=== PATIENT | female | born 1940 | race Two or more races ===

== ENCOUNTER 2017-12-12 09:48 | Outpatient (CLI) | payer OTHER | END 2017-12-12 10:15 | disposition home or self-care (01) | LOC: RAD 501 09:48 | DX: M25.551 Pain in right hip (principal) ==

== ENCOUNTER → 2017-12-31 09:55 | Outpatient (CLI) | payer OTHER | END | disposition home or self-care (01) | LOC: LAB 09:55 | DX: E55.9 Vitamin D deficiency, unspecified (principal); M85.9 Disorder of bone density and structure, unspecified; E88.89 Other specified metabolic disorders; M81.8 Other osteoporosis without current pathological fracture; E83.42 Hypomagnesemia; E56.1 Deficiency of vitamin K; M05.541 Rheumatoid polyneuropathy with rheumatoid arthritis of right hand; M25.542 Pain in joints of left hand; E21.2 Other hyperparathyroidism ==

== ENCOUNTER 2018-04-05 09:59 | Outpatient (CLI) | payer OTHER | END 2018-04-05 10:00 | disposition home or self-care (01) | LOC: RAD 09:59 | DX: D64.89 Other specified anemias (principal); D68.8 Other specified coagulation defects; N39.0 Urinary tract infection, site not specified; R82.8 Abnormal findings on cytological and histological examination of urine; E03.8 Other specified hypothyroidism; E11.9 Type 2 diabetes mellitus without complications; E55.9 Vitamin D deficiency, unspecified; I49.8 Other specified cardiac arrhythmias; Z76.89 Persons encountering health services in other specified circumstances ==

== ENCOUNTER 2018-04-15 10:47 | Outpatient (CLI) | payer OTHER ==
[2018-04-22] MEDS ORDERED: CALCIUM600 MG PO (12:39)
[2018-04-22] MEDS ORDERED: FOLIC ACID1 MG PO (12:39)
[2018-04-22] MEDS ORDERED: ASPIR-TRIN325 MG PO (12:39)
[2018-04-22] MEDS ORDERED: ALENDRONATE SOD70 MG PO (12:40)
[2018-04-22] MEDS ORDERED: ATENOLOL25 MG PO (12:41)
[2018-04-22] MEDS ORDERED: METHOTREXATE PO (12:41)
[2018-04-22] MEDS ORDERED: PAROXETINE7.5 MG PO (12:41)
[2018-04-22] MEDS ORDERED: ATORVASTATIN CA40 MG PO (12:42)
== END 2018-04-15 10:48 | disposition home or self-care (01) ==
LOC: LAB 10:47
DX: A49.02 Methicillin resistant Staphylococcus aureus infection, unspecified site (principal)

== ENCOUNTER 2018-04-29 04:55 | Day surgery (SDC) | payer OTHER ==
[~2018-04-29] VITALS: Ht 160 cm; Wt 56.7 kg
[~2018-04-29 04:55] MED LIST: ALENDRONATE SOD70 MG PO; ASPIR-TRIN325 MG PO; ATENOLOL25 MG PO; ATORVASTATIN CA40 MG PO; CALCIUM600 MG PO; FOLIC ACID1 MG PO; METHOTREXATE PO; PAROXETINE7.5 MG PO
== END 2018-04-30 13:00 | disposition home or self-care (01) ==
LOC: CIR.AMB 04:55 → O/R 16:14 → CIR.AMB 16:14 → SURG 16:14 → CIR.AMB 17:10 → SURG 17:36 → O/R 17:36 → CIR.AMB 04-30 13:00 → SURG 04-30 20:48 → O/R 04-30 20:48
DX: T84.018A Broken internal joint prosthesis, other site, initial encounter (principal); S63.06 Subluxation and dislocation of metacarpal (bone), proximal end; M65.842 Other synovitis and tenosynovitis, left hand; Z96.632 Presence of left artificial wrist joint
CPT/HCPCS: 26531 ×4; 26541 ×4; C1776

== ENCOUNTER 2019-09-16 10:33 | Outpatient (CLI) | payer OTHER | END 2019-09-16 10:40 | disposition home or self-care (01) | LOC: LAB 10:33 | DX: D64.89 Other specified anemias (principal); E88.89 Other specified metabolic disorders; D68.8 Other specified coagulation defects; N39.0 Urinary tract infection, site not specified; Z22.322 Carrier or suspected carrier of Methicillin resistant Staphylococcus aureus; E13.69 Other specified diabetes mellitus with other specified complication; E55.9 Vitamin D deficiency, unspecified; Z76.89 Persons encountering health services in other specified circumstances; I49.8 Other specified cardiac arrhythmias; E03.8 Other specified hypothyroidism; M25.50 Pain in unspecified joint ==

== ENCOUNTER → 2019-09-17 18:02 | Outpatient (CLI) | payer OTHER | END | disposition home or self-care (01) | LOC: RAD 18:02 → LAB 18:02 | DX: M25.551 Pain in right hip (principal); M25.552 Pain in left hip ==

== ENCOUNTER 2019-09-24 09:45 | Inpatient (IN) | payer OTHER ==
[~2019-09-24] VITALS: Ht 160 cm; Wt 54.4 kg
[2019-10-01] MEDS ORDERED: METHOTREXATE2.5 MG PO (07:46)
[2019-10-01] MEDS ORDERED: PAROXETINE HCL10 MG PO (07:47)
== END 2019-10-03 16:07 | disposition home or self-care (01) | DRG 470 ==
LOC: SURG 09:45 → SURH 09-30 08:46 → O/R 09-30 08:46 → SURG 09-30 09:45 → SURH 09-30 16:36
PROVIDERS: ADMIT Orthopaedic Surgery
PROC: 0SRB0JZ Replacement of Left Hip Joint with Synthetic Substitute, Open Approach (ICD-10-PCS; principal; 2019-09-30 07:00)
DX: M16.12 Unilateral primary osteoarthritis, left hip (principal); D62 Acute posthemorrhagic anemia; M06.9 Rheumatoid arthritis, unspecified

== ENCOUNTER 2020-01-01 09:26 | Outpatient (CLI) | payer OTHER ==
[~2020-01-01 09:26] MED LIST changes: +METHOTREXATE2.5 MG PO; +PAROXETINE HCL10 MG PO
== END 2020-01-01 09:49 | disposition home or self-care (01) ==
LOC: LAB 09:26
DX: D64.89 Other specified anemias (principal); E88.89 Other specified metabolic disorders; D68.8 Other specified coagulation defects; N39.0 Urinary tract infection, site not specified; Z22.322 Carrier or suspected carrier of Methicillin resistant Staphylococcus aureus; M79.651 Pain in right thigh; M79.652 Pain in left thigh; M79.604 Pain in right leg; M79.605 Pain in left leg; M17.0 Bilateral primary osteoarthritis of knee; Z76.89 Persons encountering health services in other specified circumstances; I49.8 Other specified cardiac arrhythmias

== ENCOUNTER 2020-01-07 12:30 | Inpatient (IN) | payer OTHER ==
[~2020-01-07] VITALS: Ht 160 cm; Wt 49.9 kg
[2020-01-12] MEDS ORDERED: XARELTO10 M1 (08:43)
[2020-01-12] MEDS ORDERED: CENTRUM SILVER1 EAC2 (08:43)
== END 2020-01-15 15:40 | disposition home or self-care (01) | DRG 470 ==
LOC: O/R 01-12 06:21 → SURH 01-12 06:21 → RECOVERY 01-12 12:30 → SURH 01-12 17:18
PROVIDERS: ADMIT Orthopaedic Surgery
PROC: 0SRD0J9 Replacement of Left Knee Joint with Synthetic Substitute, Cemented, Open Approach (ICD-10-PCS; principal; 2020-01-12 13:45)
PROC: 30233N1 Transfusion of Nonautologous Red Blood Cells into Peripheral Vein, Percutaneous Approach (ICD-10-PCS; 2020-01-14)
DX: M17.12 Unilateral primary osteoarthritis, left knee (principal); D64.9 Anemia, unspecified

== ENCOUNTER 2023-02-26 10:45 | Emergency (ER) | payer OTHER ==
[~2023-02-26] VITALS: Ht 152.4 cm; Wt 45.4 kg
[~2023-02-26 10:45] MED LIST changes: +CENTRUM SILVER1 EAC2; +XARELTO10 M1
== END 2023-02-26 18:35 | disposition home or self-care (01) ==
LOC: ER 10:45
DX: S70.02XA Contusion of left hip, initial encounter (principal); S30.1XXA Contusion of abdominal wall, initial encounter; W18.30XA Fall on same level, unspecified, initial encounter; Y93.89 Activity, other specified; Y92.018 Other place in single-family (private) house as the place of occurrence of the external cause; Y99.9 Unspecified external cause status; Z88.2 Allergy status to sulfonamides

== ENCOUNTER 2023-05-16 10:24 | Outpatient (CLI) | payer OTHER | END 2023-05-16 10:26 | disposition home or self-care (01) | LOC: RAD 10:24 | PROVIDERS: ATTEND Orthopaedic Surgery | DX: M25.511 Pain in right shoulder (principal); M25.512 Pain in left shoulder ==

== ENCOUNTER 2023-06-20 15:17 | Outpatient (CLI) | payer OTHER ==
[2023-06-20 16:28] LABS: BILIRUBIN TOTAL 0.37 mg/dL (0.3-1.2); CALCIUM 9.1 mg/dL (8.5-10.1); CREATININE SERUM 0.77 mg/dL (0.55-1.02); GFR 72.13; GLOBULINA 4.2 G/DL (2.4-3.5); MAGNESIUM 2.1 mg/dL (1.8-2.4); PHOSPHOROUS 3.8 mg/dL (2.5-4.9); POTASSIUM 4.16 mEq/L (3.5-5.1); TOTAL PROTEIN 7.2 gm/dL (6.4-8.2)
== END 2023-06-20 15:49 | disposition home or self-care (01) ==
LOC: LAB 15:17
PROVIDERS: ATTEND Orthopaedic Surgery
DX: M85.9 Disorder of bone density and structure, unspecified (principal); E83.42 Hypomagnesemia; E56.1 Deficiency of vitamin K; E88.89 Other specified metabolic disorders; M81.8 Other osteoporosis without current pathological fracture